=== PATIENT | male | born 1940 | race Caucasian/White ===

== ENCOUNTER 2017-06-21 20:27 | Inpatient (IN) | payer MEDICARE, MEDICAID ==
--- NOTE | 2017-06-20 20:30 | NUR ---
RANDOM GLUCOSE ORDERED.
[~2017-06-21] VITALS: Ht 177.8 cm; Wt 62.1 kg
[2017-06-21 20:45] VITALS: BP 133/74
--- NOTE | 2017-06-21 20:45 | NUR ---
ADMITTED A 76-Y/O MALE FROM [facility]. PATIENT ADMITTED ON 5150 ON HOLD FOR DTO, DTS, GD. PER HOLD PATIENT IS CONFUSED, DISORGANIZED, AND DISORIENTED. PATIENT HAS BEEN INCREASINGLY COMBATIVE AGGRESSIVE TOWARD CAREGIVER. UPON FACE TO FACE ASSESSMENT PATIENT IS ALERT, ORIENTED X1, COOPERATIVE, CONFUSED, DISORGANIZED, AND VERY ANXIOUS. SHOWS NO S/S OF ANY DISTRESS, RESPIRATION EVEN, BREATHING PATTERN NON-LABORED, NO S/SX OF PAIN OR DISCOMFORT NOTED. BELONGINGS INVENTORIED AND CHECKED FOR CONTRABAND. SKIN BODY ASSESSMENT DONE. PATIENT IS UNDER THE PSYCHIATRIC CARE OF DR. WALDROP, ORDERS OBTAINED AND DR. JACOBS CAME IN THE UNIT, SEEN AND EXAMINED PATIENT, MED RECON DONE. MRSA SCREEN DONE, BED LOCKED AND PLACED ON LOWEST POSITION. WILL NOTIFY FAMILY IN THE MORNING REGARDING PT'S ADMISSION. WILL CONTINUE TO MONITOR [id number] FOR SAFETY AND BEHAVIOR.
[2017-06-21] MEDS ORDERED: METO-357 PO (21:05)
[2017-06-21] MEDS ORDERED: LISI40TA4 PO (21:05)
[2017-06-21] MEDS ORDERED: NIFE30TA2 PO (21:07)
[2017-06-21] MEDS ORDERED: LORA1TAB PO (21:09)
[2017-06-21] MEDS ORDERED: TRAZ-147 PO (21:10)
[2017-06-21] MEDS ORDERED: ALPR0.255 PO (21:11)
[2017-06-21] MEDS ORDERED: GLIP5TAB13 PO (21:12)
[2017-06-21] MEDS ORDERED: METF500T4 PO (21:13)
[2017-06-21] MEDS ORDERED: ACETAMINOPHEN 325 MG TABLET PO PRN (21:30)
[2017-06-21] MEDS ORDERED: MAG HYDROX/AL HYDROX/SIMETH 30 ML UDC PO PRN (21:30)
[2017-06-21] MEDS ORDERED: MAGNESIUM HYDROXIDE 30 ML UDC PO PRN (21:30)
[2017-06-22] MEDS ORDERED: DEXTROSE 50%-WATER 50 ML DISP.SYRIN IV PRN
[2017-06-22] MEDS ORDERED: Z GUARD REMEDY 4 OZ OINT TP PRN (00:30)
[2017-06-22] MEDS: TEMAZEPAM 7.5 MG CAPSULE PO PRN ×2 (01:16→21:10)
[2017-06-22] MEDS: LORAZEPAM 0.5 MG TABLET PO PRN (02:39)
--- NOTE | 2017-06-22 02:39 | NUR ---
GPS RN NOTES: NOTED PATIENT VERY ANXIOUS, RESTLESS. V/S ARE STABLE. ADMINISTERED ATIVAN 0.5MG PO PRN ORDER. WILL CONTINUE TO MONITOR [id number] FOR SAFETY AND BEHAVIOR.
--- NOTE | 2017-06-22 06:05 | NUR ---
GPS RN NOTES: LEFT A VOICE MESSAGE TO AYANA MITTAL ([phone]) AND VINITA SALCIDO ([phone]). WILL ENDORSE TO THE MORNING NURSE.
[2017-06-22 06:31] LABS: APPEARANCE,URINE SL CLOUDY (CLEAR); BILIRUBIN,URINE NEGATIVE (NEGATIVE); BLOOD, URINE NEGATIVE Ery/uL (NEGATIVE); COLOR,URINE YELLOW (YELLOW); KETONES,URINE NEGATIVE (NEGATIVE); LEUKOCYTE ESTERASE ,URINE NEGATIVE (NEGATIVE); NITRITE, URINE NEGATIVE (NEGATIVE); PH,URINE 7.5 (5.0-8.0); PROTEIN,URINE 1+ mg/dl (NEGATIVE); UGLUCOSE NEGATIVE (NEGATIVE)
[2017-06-22 06:54] LABS: BACTERIA,URINE Few /HPF (None Seen); RBC,URINE 0-2 /HPF (0-2); SQUAMOUS EPITHELIAL CELL,UR 0-2 /HPF (None Seen); WBC,URINE 0-2 /HPF (0-3)
[2017-06-22 06:55] LABS: MUCUS,URINE Few /LPF (None Seen); TRIPLE PHOSPHATE CRYSTAL,UR Few /HPF (None Seen); URINE AMORPHOUS URATE Moderate /HPF (None Seen)
[2017-06-22] MEDS: BLOOD SUGAR DIAGNOSTIC 1 EACH STRIP IN SCH ×4 (07:09→22:08)
--- NOTE | 2017-06-22 07:10 | NUR ---
GPS RN NOTES: PATIENT BLOOD SUGAR WAS 109MG/DL WITH NO INSULIN COVERAGE AT THIS TIME.
[2017-06-22 07:32] LABS: CHOLESTEROL 183 mg/dL (<200); HDL CHOLESTEROL 58 mg/dL (40-60); LDL 108 mg/dL (0-99); TRIGLYCERIDES 91 mg/dL (30-150)
[2017-06-22 08:05] VITALS: BP 102/56
[2017-06-22] MEDS: METFORMIN 500 MG TABLET PO SCH ×2 (08:21→16:20)
[2017-06-22] MEDS: glipiZIDE 5 MG TABLET PO SCH (08:21)
[2017-06-22] MEDS: NIFEdipine XL (30MG) 30 MG TAB PO SCH ×2 (08:21→16:20)
[2017-06-22] MEDS: LISINOPRIL (10MG) 10 MG TABLET PO SCH (08:21)
[2017-06-22] MEDS: METOPROLOL SUCCINATE 50 MG TAB.SR.24H PO SCH (08:22)
--- NOTE | 2017-06-22 10:58 | NUR ---
RN-CO: PATIENT IS LEGALLY BLIND, 1:1 SITTER INITIATED. MADE AWARE.
[2017-06-22] MEDS: Z GUARD REMEDY 4 OZ OINT TP SCH ×2 (11:46→20:37)
[2017-06-22] MEDS: INSULIN REGULAR, HUMAN 100 UNIT/ML 3 ML VIAL SQ PRN (11:57)
--- NOTE | 2017-06-22 14:45 | NUR ---
Initial Discharge Note: Patient [place] at [address] [place] [address] / [phone]. Patient lives there with his live-in caregiver and friend Irma [phone] [cell] [phone] [home]. HENNA spoke with Irma who informed HENNA that she is also patient's DPOA. HENNA asked Irma to fax or e-mail the documents and provided Irma with her fax number and e-mail address. Irma stated that she would like patient to return home but she would also like to speak with the psychiatrist before making decisions to see what his recommendations are. HENNA to follow up with MD and facilitate safe and proper discharge.
[2017-06-22 16:00] VITALS: BP 158/74
[2017-06-22] MEDS: DIVALPROEX SODIUM 125 MG CAP.SPRINK PO SCH (16:20)
[2017-06-22] MEDS: OLANZAPINE 2.5 MG TABLET PO SCH (16:20)
--- NOTE | 2017-06-22 18:36 | NUR ---
BS ac lunch is 42, no s/s of hypoglycemia. [place] given and pt. ate 100% for dinner. Rechecked BS is 83, no s/s of hypoglycemia and pt. is awake and alert/ oriented. Called [facility] to page Dao Celis and awaiting for the call back. Addendum: 06/22/17 at 1850 by NILAM FOWLER RN BS ac dinner is 42.
--- NOTE | 2017-06-22 18:51 | NUR ---
Called the office again for Dao Celis and still awaiting for the call back.
--- NOTE | 2017-06-22 19:11 | NUR ---
ENDORSED TO INCOMING NURSE TO MAKE A FOLLOW UP TO MEDICAL DOCTOR.
[2017-06-22 20:00] VITALS: BP 150/73
--- NOTE | 2017-06-22 20:06 | NUR ---
LATEST BLOOD SUGAR 61 MG/DL, PATIENT IS SHAKING. STAT GLUCOSE ORDERED
--- NOTE | 2017-06-22 21:31 | NUR ---
AT 2109, TEMAZEPAM 7.5 MG CAP 1 PO GIVEN FOR SLEEP, PATIENT UNABLE TO SLEEP.
--- NOTE | 2017-06-22 21:34 | NUR ---
2134: RANDOM GLUCOSE STILL PENDING TO THIS TIME.
--- NOTE | 2017-06-22 22:09 | NUR ---
2208: ACCUCHECK 118 MG/DL, NO INSULIN DUE AT THIS TIME. WILL CONTINUE TO MONITOR
--- NOTE | 2017-06-22 22:18 | NUR ---
2219: PATIENT SLEEPING AT THIS TIME AFTER TAKING RESTORIL AT 2110.
--- NOTE | 2017-06-23 02:23 | NUR ---
REPEAT ACCUCHECK 128 MG/DL, NO S/S OF HYPOGLYCEMIA . WILL CONTINUE TO MONITOR.
--- NOTE | 2017-06-23 07:09 | NUR ---
DORA CARBAJAL CALLED THIS MORNING AROUND 0500, ASKED ABOUT PATIENT'S CURRENT CONDITION, AND LET PATIENT THAT SHE CALLED.
--- NOTE | 2017-06-23 07:30 | NUR ---
GPS RN NOTE: PT IN THE DINNING ROOM SITTING IN THE CHAIR, NOTED SKIN TEAR ON LEFT HAND 3RD FINGER .WOUND CONSULT ORDERED.
[2017-06-23 07:46] LABS: BASOPHILS % (AUTO) 0.5 % (0.0-2.0); EOSINOPHILS # (AUTO) 0.2 /CMM (0.0-0.7); EOSINOPHILS % (AUTO) 1.7 % (0.0-6.0); HEMATOCRIT 39 % (39-51); HEMOGLOBIN 12.9 g/dL (13.5-17.5); LYMPHOCYTES # (AUTO) 1.9 /CMM (0.8-4.8); LYMPHOCYTES % (AUTO) 21.3 % (20.0-44.0); MEAN CORPUSCULAR HEMOGLOBIN 30 PG (26.0-33.0); MEAN CORPUSCULAR HGB CONC 33 g/dl (31.0-36.0); MEAN CORPUSCULAR VOLUME 89 fL (80-96); MONOCYTES # (AUTO) 0.8 /CMM (0.1-1.30); MONOCYTES % (AUTO) 8.4 % (2.0-12.0); NEUTROPHILS # (AUTO) 6.2 /CMM (1.8-8.9); NEUTROPHILS % (AUTO) 68.1 % (43.0-81.0); PLATELET COUNT (AUTO) 243 /CMM (150-450); RDW COEFFICIENT OF VARIATION 13.9 (11.5-15.0); RED BLOOD CELL COUNT(AUTO) 4.38 MIL/uL (4.5-6.0); WHITE BLOOD COUNT (AUTO) 9.1 K/uL (4.3-11.0)
[2017-06-23 08:07] LABS: ALANINE AMINOTRANSFERASE 16 U/L (12-78); ALBUMIN 3.2 g/dL (3.4-5.0); ALKALINE PHOSPHATASE 48 U/L (46-116); ASPARTATE AMINOTRANSFERASE 22 U/L (15-37); BILIRUBIN,TOTAL 0.5 mg/dL (0.2-1.0); CALCIUM, SERUM 9.2 mg/dL (8.5-10.1); CARBON DIOXIDE 31 mmol/L (21-32); CHLORIDE 101 mmol/L (98-107); CREATININE 1.2 mg/dL (0.6-1.3); GLUCOSE 101 mg/dL (74-106); MAGNESIUM 1.7 mg/dL (1.8-2.4); PHOSPHORUS 2.6 mg/dL (2.5-4.9); SODIUM SERUM 143 mmol/L (136-145); TOTAL PROTEIN, SERUM 7.2 g/dL (6.4-8.2); UREA NITROGEN, BLOOD 22 mg/dL (7-18)
[2017-06-23] MEDS: BLOOD SUGAR DIAGNOSTIC 1 EACH STRIP IN SCH ×4 (08:16→21:46)
[2017-06-23] MEDS: NIFEdipine XL (30MG) 30 MG TAB PO SCH ×2 (08:16→17:05)
[2017-06-23] MEDS: glipiZIDE 5 MG TABLET PO SCH (08:16)
[2017-06-23] MEDS: OLANZAPINE 2.5 MG TABLET PO SCH (08:16)
[2017-06-23] MEDS: DIVALPROEX SODIUM 125 MG CAP.SPRINK PO SCH ×3 (08:16→17:04)
[2017-06-23] MEDS: METFORMIN 500 MG TABLET PO SCH ×2 (08:16→17:04)
[2017-06-23] MEDS: METOPROLOL SUCCINATE 50 MG TAB.SR.24H PO SCH (08:17)
[2017-06-23] MEDS: LISINOPRIL (10MG) 10 MG TABLET PO SCH (08:18)
[2017-06-23 08:20] LABS: CHOLESTEROL 192 mg/dL (<200); HDL CHOLESTEROL 63 mg/dL (40-60); LDL 110 mg/dL (0-99); THYROID STIMULATING HORMONE 1.066 uIU/mL (0.358-3.74); TRIGLYCERIDES 123 mg/dL (30-150)
[2017-06-23 08:26] VITALS: BP 144/74
[2017-06-23] MEDS: Z GUARD REMEDY 4 OZ OINT TP SCH ×2 (09:00→20:29)
[2017-06-23] MEDS: POTASSIUM CHLORIDE 20 MEQ TAB.PRT.SR PO SCH ×3 (10:01→11:47)
[2017-06-23] MEDS ORDERED: MAGNESIUM OXIDE 400 MG TABLET PO ONE (12:00)
[2017-06-23] MEDS: INSULIN REGULAR, HUMAN 100 UNIT/ML 3 ML VIAL SQ PRN (12:08)
[2017-06-23 16:29] VITALS: BP 145/72
[2017-06-23 20:00] VITALS: BP 129/56
[2017-06-23] MEDS: TEMAZEPAM 7.5 MG CAPSULE PO PRN (20:53)
--- NOTE | 2017-06-23 20:57 | NUR ---
PATIENT IS CRYING WAS TO GO HOME, TEMAZEPAM 7.5 MG CAP 1 PO GIVEN FOR SLEEP/REST.
[2017-06-23] MEDS: LORAZEPAM 0.5 MG TABLET PO PRN (23:04)
--- NOTE | 2017-06-23 23:04 | NUR ---
AGITATED, NOT SLEEPING, LORAZEPAM 0.5 MG TAB 1 PO GIVEN.
[2017-06-24 08:00] VITALS: BP 138/88
[2017-06-24] MEDS: DIVALPROEX SODIUM 125 MG CAP.SPRINK PO SCH ×3 (08:23→17:14)
[2017-06-24] MEDS: BLOOD SUGAR DIAGNOSTIC 1 EACH STRIP IN SCH ×4 (08:23→22:00)
[2017-06-24] MEDS: glipiZIDE 5 MG TABLET PO SCH (08:23)
[2017-06-24] MEDS: METFORMIN 500 MG TABLET PO SCH ×2 (08:24→17:13)
[2017-06-24] MEDS: NIFEdipine XL (30MG) 30 MG TAB PO SCH ×2 (08:25→17:13)
[2017-06-24] MEDS: METOPROLOL SUCCINATE 50 MG TAB.SR.24H PO SCH (08:25)
[2017-06-24] MEDS: OLANZAPINE 2.5 MG TABLET PO SCH (09:03)
[2017-06-24] MEDS: Z GUARD REMEDY 4 OZ OINT TP SCH ×2 (09:07→21:00)
[2017-06-24] MEDS: LISINOPRIL (10MG) 10 MG TABLET PO SCH (09:15)
[2017-06-24] MEDS: INSULIN REGULAR, HUMAN 100 UNIT/ML 3 ML VIAL SQ PRN ×2 (09:40→17:25)
[2017-06-24 09:43] LABS: CARBON DIOXIDE 32 mmol/L (21-32); CHLORIDE 105 mmol/L (98-107); CREATININE 1.1 mg/dL (0.6-1.3); GLUCOSE 135 mg/dL (74-106); POTASSIUM 3.6 mmol/L (3.5-5.1); SODIUM SERUM 144 mmol/L (136-145); UREA NITROGEN, BLOOD 23 mg/dL (7-18)
[2017-06-24 16:00] VITALS: BP 148/88
[2017-06-24] MEDS: TEMAZEPAM 7.5 MG CAPSULE PO PRN (21:37)
--- NOTE | 2017-06-24 22:00 | NUR ---
06/24/17 2200: ACCUCHECK 64 MG/DL, ORANGE JUICE 237 ML WITH 2 SUGAR GIVEN, AND HAD 1 VANILLA PUDDING, PATIENT CONSUMED EVERYTHING. WILL RECHECK SUGAR LEVEL IN AN HOUR.
--- NOTE | 2017-06-24 22:08 | NUR ---
AT 2137, OFFERED SLEEPING PILL, TEMAZEPAM 7.5 MG CAP, PATIENT REFUSED, NOT PAYING ATTENTION.
--- NOTE | 2017-06-25 05:56 | NUR ---
RECHECKED BLOOD SUGAR NOR = 84 MG/DL, NO SOGNS AND SYMPTOMS OF [id number] NOTED. WILL CONTINUE TO MONITOR. OFFERED 240 ML OF ORANGE JUICE.
[2017-06-25] MEDS: Z GUARD REMEDY 4 OZ OINT TP SCH ×2 (08:10→22:19)
[2017-06-25] MEDS: DIVALPROEX SODIUM 125 MG CAP.SPRINK PO SCH ×3 (08:10→17:17)
[2017-06-25] MEDS: LISINOPRIL (10MG) 10 MG TABLET PO SCH (08:10)
[2017-06-25] MEDS: METFORMIN 500 MG TABLET PO SCH ×2 (08:10→17:17)
[2017-06-25] MEDS: glipiZIDE 5 MG TABLET PO SCH (08:10)
[2017-06-25] MEDS: NIFEdipine XL (30MG) 30 MG TAB PO SCH ×2 (08:10→17:17)
[2017-06-25] MEDS: METOPROLOL SUCCINATE 50 MG TAB.SR.24H PO SCH (08:11)
[2017-06-25] MEDS: BLOOD SUGAR DIAGNOSTIC 1 EACH STRIP IN SCH ×4 (08:11→22:35)
[2017-06-25 08:28] VITALS: BP 121/50
[2017-06-25] MEDS: INSULIN REGULAR, HUMAN 100 UNIT/ML 3 ML VIAL SQ PRN (12:06)
[2017-06-25] MEDS: OLANZAPINE 2.5 MG TABLET PO SCH ×2 (12:24→22:34)
--- NOTE | 2017-06-25 12:42 | NUR ---
NURSING NOTE PT C/O STOMACH PAIN/ INDIGESTION, GAVE MAALOX 30 ML PER PT REQUEST, WILL CONTINUE TO MONITOR
--- NOTE | 2017-06-25 13:40 | NUR ---
NURSING NOTE PT STILL C/O STOMACH PAIN, 10/08 PAIN, TYLENOL 650 MG PO PER PT REQUEST GIVEN, WILL CONTINUE TO MONITOR PT
[2017-06-25 16:00] VITALS: BP 155/76
[2017-06-25 20:26] VITALS: BP 152/73
[2017-06-25] MEDS: TEMAZEPAM 7.5 MG CAPSULE PO PRN (23:21)
[2017-06-26 08:32] VITALS: BP 125/66
[2017-06-26] MEDS: BLOOD SUGAR DIAGNOSTIC 1 EACH STRIP IN SCH ×4 (08:47→21:19)
[2017-06-26] MEDS: OLANZAPINE 2.5 MG TABLET PO SCH ×2 (08:47→21:19)
[2017-06-26] MEDS: DIVALPROEX SODIUM 125 MG CAP.SPRINK PO SCH ×3 (08:47→17:14)
[2017-06-26] MEDS: METFORMIN 500 MG TABLET PO SCH ×2 (08:47→17:14)
[2017-06-26] MEDS: glipiZIDE 5 MG TABLET PO SCH (08:47)
[2017-06-26] MEDS: NIFEdipine XL (30MG) 30 MG TAB PO SCH ×2 (08:47→17:15)
[2017-06-26] MEDS: LISINOPRIL (10MG) 10 MG TABLET PO SCH (08:48)
[2017-06-26] MEDS: METOPROLOL SUCCINATE 50 MG TAB.SR.24H PO SCH (08:48)
[2017-06-26] MEDS: Z GUARD REMEDY 4 OZ OINT TP SCH ×2 (08:49→21:08)
[2017-06-26 09:20] VITALS: BP 120/65
--- NOTE | 2017-06-26 10:28 | NUR ---
WOUND CARE CONSULT: PT PRESENTS WITH INCONTINENCE AND SOME DRY ABRASIONS AND BRUISES, PRESENT ON ADMISSION. RECOMMENDATIONS MADE FOR SKIN PROTECTION. DISCUSSED WITH NURSING STAFF. CURRENT SLAVA SCORE IS 15. WILL SEE PRN. Raheem OCONNELL AGREEMENT WITH PLAN OF CARE. Addendum: 06/26/17 at 1029 by CHATA MOODY WNDNU Amended: Links added.
--- NOTE | 2017-06-26 11:41 | NUR ---
Discharge Planning: HENNA noticed that the POA paperwork was in patient's chart. HENNA called patient's caregiver/ POA Irma [phone] [cell] [phone] [home] to confirm with her that the POA paperwork has been received. Irma stated that she is happy with patient's progress and that he is more positive and communicative than he has been for a year. Irma stated that she would like to take patient home as soon as possible, as his [birth year] is soon. Irma stated that she would like the psychiatrist to call her so that she is able to discuss the discharge and treatment plan with him. HENNA left a note for patient's psychiatrist.
[2017-06-26] MEDS: INSULIN REGULAR, HUMAN 100 UNIT/ML 3 ML VIAL SQ PRN ×3 (12:28→21:16)
[2017-06-26 16:00] VITALS: BP 150/77
--- NOTE | 2017-06-26 18:10 | NUR ---
GPS RN NOTE: WOUND CONSULT TRIGGERED PT NOTED EXCORIATION ON BUTTOCK , PICTURE TAKEN CN AWARE WILL INDORSE TO INCOMING SHIFT RN .
--- NOTE | 2017-06-26 19:05 | NUR ---
GPS RN NOTE: NEW T.O. ORDER FROM Jennifer GAONA ORDER UA WILL INDORSE TO INCOMING SHIFT RN
--- NOTE | 2017-06-26 19:30 | NUR ---
RN NOTES RECEIVED PATIENT UP IN CHAIR AWAKE. AO X 1, ABLE TO MAKE NEEDS KNOWN. NO ACUTE DISTRESS NOTED. DENIES ANY PAIN AT THIS TIME. NO SYMPTOMS OF HYPER/HYPOGLYCEMIA. NO SUICIDAL/HOMICIDAL IDEATIONS. SAFETY REMINDERS GIVEN. CLOSELY MONITORED FOR SAFETY.
[2017-06-26 19:37] VITALS: BP 123/61
[2017-06-26 20:00] VITALS: BP 123/61
--- NOTE | 2017-06-27 07:08 | NUR ---
RN NOTES PATIENT AWAKE. RESPIRATIONS EVEN. NO SIGNS OF PAIN NOTED. DUE MEDS GIVEN WITH NO ASE NOTED. NEEDS ATTENDED. KEPT CLEAN AND DRY. 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 SAFETY PRECAUTIONS AND COMFORT MEASURES IN PLACE. WILL GIVE REPORT TO DAY SHIFT FOR CONTINUITY OF CARE.
[2017-06-27 08:00] VITALS: BP 100/51
[2017-06-27] MEDS: LISINOPRIL (10MG) 10 MG TABLET PO SCH (09:00)
[2017-06-27] MEDS: DIVALPROEX SODIUM 125 MG CAP.SPRINK PO SCH ×3 (09:10→17:49)
[2017-06-27] MEDS: METFORMIN 500 MG TABLET PO SCH ×2 (09:10→17:49)
[2017-06-27] MEDS: glipiZIDE 5 MG TABLET PO SCH (09:10)
[2017-06-27] MEDS: NIFEdipine XL (30MG) 30 MG TAB PO SCH ×2 (09:12→17:48)
[2017-06-27] MEDS: METOPROLOL SUCCINATE 50 MG TAB.SR.24H PO SCH (09:12)
[2017-06-27] MEDS: BLOOD SUGAR DIAGNOSTIC 1 EACH STRIP IN SCH ×4 (09:13→21:32)
[2017-06-27] MEDS: OLANZAPINE 2.5 MG TABLET PO SCH ×2 (09:13→21:32)
[2017-06-27] MEDS: Z GUARD REMEDY 4 OZ OINT TP SCH ×2 (09:20→21:38)
[2017-06-27] MEDS: INSULIN REGULAR, HUMAN 100 UNIT/ML 3 ML VIAL SQ PRN ×2 (09:21→21:36)
[2017-06-27 09:59] LABS: APPEARANCE,URINE CLOUDY (CLEAR); BILIRUBIN,URINE NEGATIVE (NEGATIVE); BLOOD, URINE NEGATIVE Ery/uL (NEGATIVE); COLOR,URINE YELLOW (YELLOW); KETONES,URINE NEGATIVE (NEGATIVE); LEUKOCYTE ESTERASE ,URINE NEGATIVE (NEGATIVE); NITRITE, URINE POSITIVE (NEGATIVE); PROTEIN,URINE TRACE mg/dl (NEGATIVE); UGLUCOSE NEGATIVE (NEGATIVE); UROBILINOGEN,URINE 0.2 EU/dL (0.2)
[2017-06-27 11:44] LABS: BACTERIA,URINE Many /HPF (None Seen); RBC,URINE 0-2 /HPF (0-2); SQUAMOUS EPITHELIAL CELL,UR Rare /HPF (None Seen)
[2017-06-27 11:45] LABS: WBC,URINE 0-2 /HPF (0-3)
--- NOTE | 2017-06-27 11:46 | NUR ---
WOUND CARE CONSULT: PT NOW PRESENTS WITH GLUTEAL CREASE EXCORIATION. PT IS INCONTINENT. RECOMMENDATIONS MADE FOR SKIN PROTECTION AND CARE OF EXCORIATION. DISCUSSED WITH NURSING STAFF. WILL SEE PRN. REDDY IN AGREEMENT WITH PLAN OF CARE. Addendum: 06/27/17 at 1147 by CHATA MOODY WNDNU Amended: Links added.
[2017-06-27 16:00] VITALS: BP 128/58
[2017-06-27 20:54] VITALS: BP 150/79
[2017-06-28 08:00] VITALS: BP 146/68
[2017-06-28] MEDS: NIFEdipine XL (30MG) 30 MG TAB PO SCH (08:07)
[2017-06-28] MEDS: DIVALPROEX SODIUM 125 MG CAP.SPRINK PO SCH ×2 (08:07→12:40)
[2017-06-28] MEDS: BLOOD SUGAR DIAGNOSTIC 1 EACH STRIP IN SCH ×2 (08:07→12:08)
[2017-06-28 08:08] VITALS: BP 146/68
[2017-06-28] MEDS: glipiZIDE 5 MG TABLET PO SCH (08:08)
[2017-06-28] MEDS: LISINOPRIL (10MG) 10 MG TABLET PO SCH (08:08)
[2017-06-28] MEDS: METOPROLOL SUCCINATE 50 MG TAB.SR.24H PO SCH (08:08)
[2017-06-28] MEDS: Z GUARD REMEDY 4 OZ OINT TP SCH (08:13)
[2017-06-28] MEDS: METFORMIN 500 MG TABLET PO SCH (08:14)
--- NOTE | 2017-06-28 09:47 | NUR ---
Discharge Note: Patient will be discharged home to [address] [place] [address] / [phone]. Patient lives there with his caregiver/POA. Patient has 24 hour care. Patient will be picked up by caregiver / POA Irma [phone] [cell] [phone] [home] in her private vehicle. Upon discharge, patient is calm and cooperative and denies suicidal/homicidal ideation. Patient has no behavioral disturbances. HENNA faxed a home health order to [facility] [phone] / fax [phone]. 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 Lugo [address] [facility] [address], [place] [address] / [phone] on July 14 at 4pm. SW will also be seen by a psychiatrist at [facility] [address], [place] [address] on June 29 at 2pm. Addendum: 06/28/17 at 1148 by MULU AGUILLON HENNA received a call from [facility] [phone] / fax [phone], informing HENNA that agency was unable to accommodate patient. SW to find alternate home health agency.
--- NOTE | 2017-06-28 12:10 | NUR ---
HENNA swansoned home health referral to [facility] [phone] / fax # [phone] Addendum: 06/28/17 at 1252 by MULU AGUILLON sky is # [phone]
--- NOTE | 2017-06-28 15:13 | NUR ---
GPS CAGER OPERATOR NOTE: PATIENT DISCHARGE HOME TO [address] [place] [address] PICKED UP BY CAREGIVER /[employer] [phone] . SHE WILL TAKE CARE OF THE PT AT HOME, ALL DC INSTRUCTION AND FOLLOW UP APPOINTMENTS EXPLAIN AND GIVEN TO CAREGIVER , MEDICATION PRESCRIPTION EXPLAIN AND GIVEN. DR WALDROP DC HOLD, PT WAS SEEN AND EXAMINE BY DR CARMELINA DR AWARE OF DISCHARGE. PT DISCHARGE IN STABLE CONDITION , NO S/S DISTRESS NOTED PT DENIES SI/HI, DENIES PAIN ,VSS VNL , BS 116 MG/DL. ALL BELONGINGS GIVEN TO CAREGIVER .EXIT CARE DONE PRINTED, GIVEN TO CAREGIVER , HOME HEALTH ORDERED PT SAFELY DISCHARGE HOME .
== END 2017-06-28 15:20 | disposition home health service (06) | DRG 885 ==
LOC: GPS 20:27
PROVIDERS: ADMIT Psychiatry & Neurology Psychiatry; ATTEND Psychiatry & Neurology Psychiatry
DX: F39 Unspecified mood [affective] disorder (principal); E11.9 Type 2 diabetes mellitus without complications; I10 Essential (primary) hypertension; Z86.73 Personal history of transient ischemic attack (TIA), and cerebral infarction without residual deficits; Z79.84 Long term (current) use of oral hypoglycemic drugs; F84.0 Autistic disorder; Z79.899 Other long term (current) drug therapy
CPT/HCPCS: 36415; 80048-TC; 80053-TC; 80061-TC; 81000-TC; 82947-TC; 82962-TC; 83735-TC; 84100-TC; 84443-TC; 85025-TC; 87081-TC; 87086-TC; 97110-TC; 97116-TC; 97530-TC; A4349; J1815